=== PATIENT | female | born 2000 | race African-American/Black ===

== ENCOUNTER 2023-12-09 17:36 | Emergency (ER) | payer OTHER ==
[~2023-12-09] VITALS: Ht 167.6 cm; Wt 61.6 kg
[2023-12-09 21:24] VITALS: BP 98/60; TEMP 98.5; O2SAT 97
[2023-12-10] MEDS ORDERED: LIDO5DIS41 TOP (00:01)
[2023-12-10] MEDS ORDERED: NAPR-885 PO (00:01)
== END 2023-12-10 00:11 | disposition home or self-care (01) ==
LOC: M ED 17:36
DX: S86.911A Strain of unspecified muscle(s) and tendon(s) at lower leg level, right leg, initial encounter (principal); X58.XXXA Exposure to other specified factors, initial encounter; Y92.9 Unspecified place or not applicable; Y93.9 Activity, unspecified; Y99.9 Unspecified external cause status; F41.9 Anxiety disorder, unspecified; F32.A Depression, unspecified; Z88.5 Allergy status to narcotic agent